=== PATIENT | male | born 1955 | race Caucasian/White ===

== ENCOUNTER 2020-11-15 22:36 | Outpatient (CLI) | payer MEDICARE | END 2020-11-15 22:37 | disposition critical access hospital (66) | LOC: EMS 22:36 | DX: R53.1 Weakness (principal); R51.9 Headache, unspecified; M54.2 Cervicalgia | CPT/HCPCS: A0425; A0429 ==

== ENCOUNTER 2020-11-15 23:13 | Inpatient (IN) | payer MEDICARE ==
[2020-11-16] MEDS ORDERED: SODIUM CHLORIDE 0.9% 1,000 ML IV STA (00:16)
[2020-11-16] MEDS ORDERED: KETOROLAC 15 MG/ML VIAL IVP STA (00:17)
--- NOTE | 2020-11-16 00:18 | ED Physician Documentation ---
PD HPI HEADACHE - Stated complaint Stated Complaint: LETHARGIC, LEFT NECK PAIN - Chief complaint Chief Complaint: General - History obtained from History obtained from: Patient, Family - History of Present Illness Timing - onset: How many days ago (4-5 days of general weakness but much worse today. [place] unable to stand/walk due to weakness in both legs. Mild arm weakness. Having some pain in back of neck. Mild headache. No focal numbness. Feeling of dyspnea today.) Timing - onset during: Light activity Timing - details: Gradual onset, Still present (worse today) Worst headache ever?: No: Worst headache ever? Location: Back Quality: Throbbing, Aching Associated symptoms: Stiff neck. No: Fever, Nausea, Vomiting, Weakness, Vision changes Worsened by: No: Light, Noise Contributing factors: Anticoagulated, Hypertension. No: Recent illness, Trauma Similar symptoms before: Diagnosis (has had the general weakness and also headache when had low potassium in the past.) Recently seen: Clinic (had first [employer] vaccine 1 1/2 weeks ago.), Not recently seen Review of Systems Constitutional: denies: Fever, Chills Nose: denies: Rhinorrhea / runny nose, Congestion Throat: denies: Sore throat Respiratory: denies: Cough GI: denies: Nausea, Vomiting, Diarrhea : denies: Dysuria, Frequency Skin: denies: Rash Musculoskeletal: reports: Neck pain. denies: Back pain Neurologic: reports: Generalized weakness, Headache. denies: Focal weakness, Numbness, Near syncope, Confused, Head injury, LOC PD PAST MEDICAL HISTORY - Past Medical History Cardiovascular: Hypertension, Atrial fibrillation Respiratory: None Neuro: None Endocrine/Autoimmune: None - Present Medications Home Medications: Ambulatory Orders Medication Instructions Recorded Confirmed Abiraterone Acetate [Zytiga] 500 mg PO 11/15/20 Apixaban [Eliquis] 11/15/20 Atorvastatin [Lipitor] 80 mg PO DAILY 11/15/20 11/15/20 Citalopram [CeleXA] 40 mg PO DAILY 11/15/20 11/15/20 Losartan [Cozaar] 100 mg PO DAILY 11/15/20 11/15/20 Omeprazole [PriLOSEC] 20 mg PO DAILY 11/15/20 11/15/20 Potassium Chloride [K-Dur] 20 meq PO ONCE 11/15/20 11/15/20 Terbinafine [LamISIL] 250 mg PO DAILY 11/15/20 11/15/20 bisoproloL fumarate [Bisoprolol 5 gm MC DAILY 11/15/20 11/15/20 Fumarate] predniSONE [Deltasone] 5 mg PO ONCE 11/15/20 11/15/20 - Allergies Allergies/Adverse Reactions: Allergies Allergy/AdvReac Type Severity Reaction Status Date / Time No Known Drug Allergies Allergy Verified 11/16/20 00:46 PD ED PE NORMAL - Vitals Vital signs reviewed: Yes - General General: Alert and oriented X 3, Well developed/nourished - HEENT HEENT: PERRL, EOMI, Pharynx benign - Neck Neck: Supple, no meningeal sign (but has some muscular tenderness right side neck. ), No bony TTP, No adenopathy - Cardiac Cardiac: No murmur. No: RRR (irregular but rate controlled. ) - Respiratory Respiratory: Clear bilaterally - Abdomen Abdomen: Soft, Non tender - Male Male : Deferred - Rectal Rectal: Deferred - Back Back: No CVA TTP - Derm Derm: Normal color, Warm and dry - Neuro Neuro: Alert and oriented X 3, No sensory deficit, Normal speech, Other (seems some weak of both legs. Arms good strength) Results - Vitals Vitals: Vital Signs - 24 hr 11/15/20 11/16/20 11/16/20 23:18 00:14 02:00 Temperature 36.1 C L Heart Rate 90 97 Respiratory 29 H 28 H 26 H Rate Blood Pressure 162/95 H 167/109 H 152/95 H O2 Saturation 96 93 94 Oxygen O2 Source Room air - EKG (time done) 00:21 Rate: Rate (enter#) (90) Rhythm: Atrial fibrillation, Other (PVCs intermittent) Ischemia: Normal ST segments, Non specific changes. No: ST elevation c/w ischemia, ST depression - Labs Labs: Laboratory Tests 11/15/20 11/15/20 11/15/20 23:49 23:49 23:49 WBC 9.2 RBC 3.67 L Hgb 10.9 L Hct 32.4 L MCV 88.3 MCH 29.7 MCHC 33.6 RDW 13.4 Plt Count 263 MPV 10.9 Neut # (Auto) 6.8 H Lymph # (Auto) 1.2 L [place] # (Auto) 1.1 H Eos # (Auto) 0.1 Baso # (Auto) 0.0 Absolute Nucleated RBC 0.00 Nucleated RBC % 0.0 ESR PT 21.5 H INR 2.0 H APTT 31.8 Sodium 136 Potassium 2.7 L Chloride 99 L Carbon Dioxide 26 Anion Gap 11.0 BUN 10 Creatinine 0.7 Estimated GFR (MDRD) 113 Glucose 98 Calcium 7.5 L Magnesium 1.0 L* Total Bilirubin 0.9 AST 20 ALT 15 Alkaline Phosphatase 54 Troponin I High Sens B-Natriuretic Peptide Total Protein 6.5 L Albumin 3.3 Globulin 3.2 Albumin/Globulin Ratio 1.0 Lipase 23 Nasal Adenovirus (PCR) Nasal B. parapertussis DNA (PCR) Nasal Coronavir 229E PCR Nasal Coronavir HKU1 PCR Nasal Coronavir NL63 PCR Nasal Coronavir OC43 PCR Nasal Enterovir/Rhinovir PCR Nasal Influenza B PCR Nasal Influenza A PCR Nasal Parainfluen 1 PCR Nasal Parainfluen 2 PCR Nasal Parainfluen 3 PCR Nasal Parainfluen 4 PCR Nasal RSV (PCR) Nasal B.pertussis DNA PCR Nasal C.pneumoniae (PCR) [place] Human Metapneumo PCR Nasal M.pneumoniae (PCR) Nasal SARS-CoV-2 (PCR) 11/15/20 11/15/20 11/15/20 23:49 23:49 23:49 WBC RBC Hgb Hct MCV MCH MCHC RDW Plt Count MPV Neut # (Auto) Lymph # (Auto) [place] # (Auto) Eos # (Auto) Baso # (Auto) Absolute Nucleated RBC Nucleated RBC % ESR 70 H PT INR APTT Sodium Potassium Chloride Carbon Dioxide Anion Gap BUN Creatinine Estimated GFR (MDRD) Glucose Calcium Magnesium Total Bilirubin AST ALT Alkaline Phosphatase Troponin I High Sens 60.0 H* B-Natriuretic Peptide 413 H Total Protein Albumin Globulin Albumin/Globulin Ratio Lipase Nasal Adenovirus (PCR) Nasal B. parapertussis DNA (PCR) Nasal Coronavir 229E PCR Nasal Coronavir HKU1 PCR Nasal Coronavir NL63 PCR Nasal Coronavir OC43 PCR Nasal Enterovir/Rhinovir PCR Nasal Influenza B PCR Nasal Influenza A PCR Nasal Parainfluen 1 PCR Nasal Parainfluen 2 PCR Nasal Parainfluen 3 PCR Nasal Parainfluen 4 PCR Nasal RSV (PCR) Nasal B.pertussis DNA PCR Nasal C.pneumoniae (PCR) Aldair Human Metapneumo PCR Nasal M.pneumoniae (PCR) Nasal SARS-CoV-2 (PCR) 11/16/20 11/16/20 11/16/20 01:45 01:54 01:54 WBC RBC Hgb Hct MCV MCH MCHC RDW Plt Count MPV Neut # (Auto) Lymph # (Auto) [place] # (Auto) Eos # (Auto) Baso # (Auto) Absolute Nucleated RBC Nucleated RBC % ESR PT INR APTT Sodium Potassium Chloride Carbon Dioxide Anion Gap BUN Creatinine Estimated GFR (MDRD) Glucose Calcium Magnesium Total Bilirubin AST ALT Alkaline Phosphatase Troponin I High Sens 65.2 H* B-Natriuretic Peptide 530 H Total Protein Albumin Globulin Albumin/Globulin Ratio Lipase Nasal Adenovirus (PCR) NOT DETECTED Nasal B. parapertussis DNA (PCR) NOT DETECTED Nasal Coronavir 229E PCR NOT DETECTED Nasal Coronavir HKU1 PCR NOT DETECTED Nasal Coronavir NL63 PCR NOT DETECTED Nasal Coronavir OC43 PCR NOT DETECTED Nasal Enterovir/Rhinovir PCR NOT DETECTED Nasal Influenza B PCR NOT DETECTED Nasal Influenza A PCR NOT DETECTED Nasal Parainfluen 1 PCR NOT DETECTED Nasal Parainfluen 2 PCR NOT DETECTED Nasal Parainfluen 3 PCR NOT DETECTED Nasal Parainfluen 4 PCR NOT DETECTED Nasal RSV (PCR) NOT DETECTED Nasal B.pertussis DNA PCR NOT DETECTED Nasal C.pneumoniae (PCR) NOT DETECTED Aldair Human Metapneumo PCR NOT DETECTED Nasal M.pneumoniae (PCR) NOT DETECTED Nasal SARS-CoV-2 (PCR) NOT DETECTED - Rads (name of study) head CT Radiology: Prelim report reviewed (no ICH nor acute process), See rad report chest xray Radiology: Prelim report reviewed (no CHF. ), See rad report PD MEDICAL DECISION MAKING - ED course Complexity details: reviewed results, re-evaluated patient, considered differential (consider possible side effects of COVID vaccine which he had 1 1/2 weeks ago, and then symptoms the past 4-5 days. Given anticoag and headache, would also get CT to ensure no ICH. Canc heck labs for lytes/etc. Eval for heart as well. ), d/w patient, d/w industrial methods consultant (hospitalist) Departure - Departure Disposition: ED Place in Observation Clinical Impression: General weakness, Hypokalemia, Hypomagnesemia, Elevated troponin Headache Qualifiers: Headache type: unspecified Headache chronicity pattern: acute headache Intractability: not intractable Qualified Code(s): R51.9 - Headache, unspecified Condition: Stable Discharge Date/Time: 11/16/20 02:56
[2020-11-16 00:34] LABS: BASOPHILS % (AUTO) 0.4 %; EOSINOPHILS # (AUTO) 0.1 10^3/uL (0.0-0.7); EOSINOPHILS % (AUTO) 0.8 %; HCT - HEMATOCRIT 32.4 % (42.0-52.0); HGB - HEMOGLOBIN 10.9 g/dL (14.0-18.0); LYMPHOCYTES # (AUTO) 1.2 10^3/uL (1.5-3.5); LYMPHOCYTES % (AUTO) 13.3 %; MEAN CORPUSCULAR HEMOGLOBIN 29.7 pg (27.0-31.0); MEAN CORPUSCULAR HGB CONC 33.6 g/dL (32.0-36.0); MEAN CORPUSCULAR VOLUME 88.3 fL (80.0-94.0); MEAN PLATELET VOLUME 10.9 fL (7.4-11.4); MONOCYTES # (AUTO) 1.1 10^3/uL (0.0-1.0); MONOCYTES % (AUTO) 11.4 %; NEUTROPHILS # (AUTO) 6.8 10^3/uL (1.5-6.6); NEUTROPHILS % (AUTO) 73.7 %; PLT - PLATELET COUNT 263 10^3/uL (130-450); RED BLOOD COUNT 3.67 10^6/uL (4.70-6.10); RED CELL DISTRIBUTION WIDTH 13.4 % (12.0-15.0); WHITE BLOOD COUNT 9.2 x10^3/uL (4.8-10.8)
[2020-11-16 00:41] LABS: PT - PROTHROMBIN TIME 21.5 secs (9.9-12.6)
[2020-11-16 00:49] LABS: PARTIAL THROMBOPLASTIN TIME 31.8 secs (24.9-33.3)
[2020-11-16 00:54] LABS: ALBUMIN 3.3 g/dL (3.2-5.5); BILIRUBIN,TOTAL 0.9 mg/dL (0.2-1.0); CALCIUM 7.5 mg/dL (8.5-10.3); CREATININE 0.7 mg/dL (0.6-1.2); POTASSIUM 2.7 mmol/L (3.5-5.0); TOTAL PROTEIN 6.5 g/dL (6.7-8.2)
[2020-11-16] MEDS ORDERED: POTASSIUM CHLOR 10 MEQ/100 ML 10 MEQ/100 ML BAG IV STA (01:05)
[2020-11-16] MEDS ORDERED: MAGNESIUM SULFATE 2 GRAM 2 GM/50 ML BAG IV ONE ×2 (01:05→07:04)
[2020-11-16] MEDS ORDERED: MAGNESIUM OXIDE 400 MG TABLET PO STA (01:24)
[2020-11-16] MEDS ORDERED: POTASSIUM CHLORIDE 20 MEQ TABLET PO STA (01:24)
--- NOTE | 2020-11-16 01:57 | HISTORY & PHYSICAL EXAMINATION ---
Chief Complaint - Chief Complaint Chief Complaint: Neck pain. History of Present Illness - Admitted From Admitted From:: Home - History Obtained From Records Reviewed: Yes History obtained from: Patient, Spouse, ER Physician. - History of Present Illness HPI Comment/Other: This is a 65-year-old male with a past medical history significant for atrial relation on Eliquis, hypertension, metastatic prostate cancer on Zytiga and prednisone who presents today complaining of neck pain. He states his symptoms have been going on for the past week or so. He believes he has had occasional tingling in his right arm over the past few weeks as well. His neck pain is so significant that he does not want to move his neck whatsoever. He does report tenderness to his cervical spine and the adjacent muscles. He has tried ibuprofen with mild relief. He has not tried any muscle relaxants. He also states that he feels weak overall and has had difficulty ambulating over the past couple weeks. His notes that his gait has been shuffling. He does complain of lower extremity weakness but denies any muscle pains or aches there. He does complain of muscle cramping in his neck. He states this feels similar to when he had low potassium about a year ago when he was hospitalized at [facility] in [place] for over a week. He reports no numbness or tingling in his lower extremities. No focal deficits. Denies any urinary or bowel symptoms. He denies any lumbar spine pain. He states his prostate cancer has metastasized to his spine, lung, and ribs. He is [facility] by [facility]. He reports no chest pain or dyspnea. His feels that he is not sharp as he usually is and delivered slow to answer some questions. He reports no dysuria, urgency, hematuria. In the emergency department, he was found to be afebrile. He was hypertensive with systolic in the 160s. He was tachypneic with respiratory in the mid 20s. He was saturating well on room air. Labs were significant for potassium of 2.7 and magnesium of 1.0. His ESR was 70. Initial troponin was 60. His EKG revealed atrial fibrillation without evidence of ischemia. His QTC was prolonged at 496. Given the above findings, medicine was consulted for admission. I did discuss goals of care with the patient and he would like to be a full code. 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 Living arrangement: At home Living Situation: With spouse/s.o. Social History Notes: He lives at home with his , Avelina. 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 He continues smoke a half a pack a day and has been smoking for almost his whole life. He drinks 2 glasses of wine a day and has been doing so as well for most of his life. - POLST Patient has POLST: No Meds/Allgy - Home Medications Home Medications: Ambulatory Orders Medication Instructions Recorded Confirmed Abiraterone Acetate [Zytiga] 500 mg PO 11/15/20 Apixaban [Eliquis] 11/15/20 Atorvastatin [Lipitor] 80 mg PO DAILY 11/15/20 11/15/20 Citalopram [CeleXA] 40 mg PO DAILY 11/15/20 11/15/20 Losartan [Cozaar] 100 mg PO DAILY 11/15/20 11/15/20 Omeprazole [PriLOSEC] 20 mg PO DAILY 11/15/20 11/15/20 Potassium Chloride [K-Dur] 20 meq PO ONCE 11/15/20 11/15/20 Terbinafine [LamISIL] 250 mg PO DAILY 11/15/20 11/15/20 bisoproloL fumarate [Bisoprolol 5 gm MC DAILY 11/15/20 11/15/20 Fumarate] predniSONE [Deltasone] 5 mg PO ONCE 11/15/20 11/15/20 - Allergies Allergies/Adverse Reactions: Allergies Allergy/AdvReac Type Severity Reaction Status Date / Time No Known Drug Allergies Allergy Verified 11/16/20 00:46 Review of Systems - Constitutional Constitutional: reports: Fatigue. denies: Fever, Chills - Eyes Eyes: denies: Blurred vision, Vision loss - Cardiovascular Cariovascular: denies: Chest pain, Edema, Lightheadedness, Exertional dyspnea, Decr. exercise tolerance - Respiratory Respiratory: denies: Cough, SOB at rest, SOB with exertion - Gastrointestinal Gastrointestinal: denies: Abdominal pain, Diarrhea, Change in bowel habits, Nausea, Vomiting - Genitourinary Genitourinary: denies: Dysuria, Frequency, Urgency, Hematuria - Musculoskeletal Musculoskeletal: reports: Muscle pain, Back pain, Muscle aches, Stiffness, Limited range of motion - Integumentary Integumentary: denies: Rash - Neurological Neurological: reports: General weakness, Abnormal gait. denies: Focal weakness, Dizziness, Numbness - Hematologic/Lymphatic Hematologic/Lymphatic: denies: Bleeding tendencies - All Other Systems All Other Systems: reports: Reviewed and negative Prior Level of Functionality: He is normally independent with his ADLs. Exam - Vital Signs Reviewed Vital Signs: Yes Vital Signs: Vital Signs x48h Temp Pulse Resp BP Pulse Ox 11/16/20 00:14 90 28 H 167/109 H 93 11/15/20 23:18 36.1 C L 29 H 162/95 H 96 - Physical Exam General Appearance: positive: Alert, Mild distress Eyes Bilateral: positive: Normal inspection, PERRL, Conjunctivae nml ENT: positive: ENT inspection nml Neck: positive: Other (He has cervical spine tenderness as well as paraspinal muscle tenderness. Range of motion is limited secondary to pain.) Respiratory: positive: No respiratory distress, Other (He is tachypneic but not in distress.). negative: Wheezes, Rales Cardiovascular: positive: Irregularly irregular. negative: Tachycardia, Bradycardia, Systolic murmur Abdomen: positive: Non-tender, No distention. negative: Tenderness, Guarding, Rebound Back: positive: Other (He does have cervical spine tenderness as mentioned above. No thoracic or lumbar spine tenderness.) Skin: positive: Warm, Dry Extremities: positive: No pedal edema Neurologic/Psychiatric: positive: Motor nml, Sensation nml, Other (Sensation is intact in all 4 extremities. 5 out of 5 motor strength in all 4 extremities. He has about +1 to +2 reflexes at the patella bilaterally.). negative: Disoriented to person, Slurred/abnml speech Conclusion/Plan - Problem List (1) General weakness Conclusion/Plan: This appears to be secondary to his ultralight derangements. This is likely causing him to have the weakness and difficulty ambulating. CT the head was unremarkable. He has no obvious focal deficits on exam at this time. We will replace electrolytes and will consider PT consult if no improvement. (2) Hypokalemia Conclusion/Plan: This is likely contributing to his weakness. His potassium is decreased at 2.7. He is on losartan and potassium supplementation at home. This may potentially be caused by his Zytiga which can cause mineralocorticoid excess with hypokalemia and hyper tension although he is also taking prednisone with this. We will replace his magnesium aggressively given this is quite depleted at 1.0 and then replace his potassium. Will recheck labs in the morning. We did discuss checking check aldosterone and renin but given this is a send out lab, we will have him follow up with his primary care physician for consideration of these labs since it would not roving changer at this time and there is a likelihood that this is due to the zytiga. (3) Hypomagnesemia Conclusion/Plan: He has significant hypomagnesemia with a magnesium of 1.0. The etiology is not clear but may be related to his alcohol consumption. This is likely co ntributing to his hyperkalemia as well. We will replace this aggressively and recheck labs in the morning. (4) Neck pain Conclusion/Plan: His neck pain may be due to the hypokalemia but I am also concerned given his history of metastatic prostate cancer and occasional tingling/sciatica-like pain down his right arm that there could be metastatic disease. We will order a CT of the neck for further evaluation. We will start him on Robaxin as needed and continue with ibuprofen and Tylenol as needed for pain. Low suspicion for meningitis at this time given lack of fever, photophobia but will consider a lumbar puncture if symptoms persist. (5) Elevated troponin Conclusion/Plan: Suspect this is likely demand ischemia. His troponin is elevated in the 60s but he has no chest pain his EKG does not suggest ischemia. We will continue to trend and monitor on telemetry. (6) Prostate cancer metastatic to bone Conclusion/Plan: He has known prostate cancer metastasis to the spine, lungs, ribs. He is on Zytiga and prednisone and is followed by [facility]. We will obtain further imaging of the cervical spine as mentioned above given his neck pain and concern for metastatic disease. There is also concern that the Zytiga may be contributing to the hypokalemia and hypertension. The continuation of Zytiga will need to be discussed with his oncologist given the hypokalemia. (7) Hypertension Conclusion/Plan: He is hypertensive with systolic in the 160s and given the hypokalemia, there is concern for hyperaldosteronism. We will check plasma aldosterone concentration plasma renin activity as mentioned above. We will continue his home antihypertensives. - Lab Results Lab results reviewed: Yes Fish Bones: 11/16/20 04:55 11/16/20 04:55 - Diagnostic Imaging Results Diagnostic Imaging Results: positive: Final report reviewed - EKG Results EKG Interpreted Independently: Yes EKG Comparison: No prior EKG EKG Findings: EKG reveals atrial fibrillation without evidence of ischemia. PVCs noted. QTC is prolonged at 496. Core Measures - Anticipated LOS I expect patient to be DC'd or transferred within 96 hours.: Yes - Issues Hospital Issues and Management Plan: 65-year-old male with a history of atrial fibrillation and metastatic prostate cancer presents with neck pain and generalized weakness found to have hypokalemia and hypomagnesemia. We will admit for aggressive electrolyte replacement. Will also obtain a CT of the neck for further evaluation given his history of metastatic disease. - DVT/VTE - Prophylaxis VTE/DVT Device ordered at admit?: Yes VTE/DVT Prophylaxis med ordered at admit?: No
[2020-11-16] MEDS ORDERED: NS W/20 MEQ KCL 1,000 ML IV SCH (03:00)
[2020-11-16 03:04] LABS: B. PARAPERTUSSIS- RESP PCR PAN NOT DETECTED; B. PERTUSSIS- RESP PCR PANEL NOT DETECTED; C. PNEUMONIAE- RESP PCR PANEL NOT DETECTED; CORONAVIRUS 229E-RESP PCR NOT DETECTED; CORONAVIRUS HKU1-RESP PCR NOT DETECTED; CORONAVIRUS NL63-RESP PCR NOT DETECTED; CORONAVIRUS OC43-RESP PCR NOT DETECTED; HUMAN METAPNEUMOVIRUS NOT DETECTED; INFLUENZA A- RESP PCR PANEL NOT DETECTED; INFLUENZA B - RESP PCR PANEL NOT DETECTED; M. PNEUMONIAE- RESP PCR PANEL NOT DETECTED; PARAINFLUENZA VIRUS 1 NOT DETECTED; PARAINFLUENZA VIRUS 2 NOT DETECTED; PARAINFLUENZA VIRUS 3 NOT DETECTED; PARAINFLUENZA VIRUS 4 NOT DETECTED; RHINOVIRUS/ENTEROVIRUS NOT DETECTED; RSV- RESP PCR PANEL NOT DETECTED; SARS-CoV-2 -RESP PCR PANEL NOT DETECTED
[2020-11-16] MEDS: POTASSIUM CHLOR 10 MEQ/100 ML 10 MEQ/100 ML BAG IV SCH ×6 (03:48→11:49)
[2020-11-16 05:08] LABS: BASOPHILS % (AUTO) 0.3 %; EOSINOPHILS # (AUTO) 0.1 10^3/uL (0.0-0.7); EOSINOPHILS % (AUTO) 0.6 %; HCT - HEMATOCRIT 31.6 % (42.0-52.0); HGB - HEMOGLOBIN 10.7 g/dL (14.0-18.0); MEAN CORPUSCULAR HEMOGLOBIN 29.8 pg (27.0-31.0); MEAN CORPUSCULAR HGB CONC 33.9 g/dL (32.0-36.0); MEAN PLATELET VOLUME 10.3 fL (7.4-11.4); MONOCYTES # (AUTO) 0.9 10^3/uL (0.0-1.0); MONOCYTES % (AUTO) 10.5 %; NEUTROPHILS # (AUTO) 6.6 10^3/uL (1.5-6.6); NEUTROPHILS % (AUTO) 76.1 %; PLT - PLATELET COUNT 228 10^3/uL (130-450); RED BLOOD COUNT 3.59 10^6/uL (4.70-6.10); RED CELL DISTRIBUTION WIDTH 13.3 % (12.0-15.0); WHITE BLOOD COUNT 8.7 x10^3/uL (4.8-10.8)
[2020-11-16 05:19] LABS: CALCIUM 7.3 mg/dL (8.5-10.3); CREATININE 0.7 mg/dL (0.6-1.2); MAGNESIUM 1.5 mg/dL (1.7-2.8); PHOSPHORUS 1.5 mg/dL (2.5-4.6); POTASSIUM 2.9 mmol/L (3.5-5.0)
[2020-11-16] MEDS: IBUPROFEN 400 MG TABLET PO PRN ×2 (06:08→20:42)
--- NOTE | 2020-11-16 07:28 | CT Report ---
PROCEDURE: HEAD WO INDICATIONS: headache, on Eliquis TECHNIQUE: Noncontrast 4.5 mm thick angled axial sections acquired from the foramen magnum to the vertex. For r adiation dose reduction, the following was used: automated exposure control, adjustment of mA and/or kV according to patient size. COMPARISON: None. FINDINGS: Image quality: Excellent. CSF spaces: Basal cisterns are patent. No extra-axial fluid collections. Ventricles are normal in size and shape. Brain: No midline shift. No intracranial masses or hemorrhage. [place]-white matter interface is norm al. Age-related volume loss. Intracranial carotid calcifications. Skull and face: Calvarium and visualized facial bones are intact, without suspicious lesions. Sinuses: Left maxillary sinus mucosal cyst. Patchy mild anterior ethmoid disease. IMPRESSION: 1. Age-related volume loss 2. No evidence acute stroke, hemorrhage, or mass. 3. Chronic sinus disease. A preliminary report with the above findings was provided at the time of the study by [facility]. Reviewed by: Reinaldo Reyes MD on 11/16/2020 6:26 AM NASRIN Approved by: Reinaldo Reyes MD on 11/16/2020 6:26 AM NASRIN Station ID: [id number]
--- NOTE | 2020-11-16 07:51 | CT Report ---
PROCEDURE: CERVICAL SPINE WO INDICATIONS: Neck pain. Numbness right arm. Metastatic cancer. TECHNIQUE: Noncontrast 3 mm thick sections acquired from the skull base to the T4 level. Sagittal and coronal r eformats were then constructed. For radiation dose reduction, the following was used: automated exp osure control, adjustment of mA and/or kV according to patient size. COMPARISON: None. FINDINGS: Image quality: Excellent. Bones: No fractures or dislocations. Visualized superior ribs are intact. Severe cervical spondyli tic change. Multilevel uncovertebral joint osteophytes and facet arthropathy result in multilevel bon y foraminal narrowing. Soft tissues: Prevertebral soft tissues are normal in thickness. No paravertebral hematomas. No ap ical pneumothoraces. There is fullness in the right base of tongue region and right lateral wall of the oropharynx that is seen on image 32/3. There is also shotty cervical adenopathy. IMPRESSION: 1. No evidence acute cervical fracture or dislocation. 2. Cervical spondylitic change. 3. Fullness of the right oropharynx involving base of tongue and lateral wall of the oropharynx is no anitra. Suggest ENT referral for direct visualization. A preliminary report with the above findings was provided at the time of the study by [facility]. Above discussed with Dr. Ruiz, the hospitalist caring for the patient, at the time of dictation on 11/16/2020 at 0647 hours [place] daylight time. Reviewed by: Reinaldo Reyes MD on 11/16/2020 6:50 AM NASRIN Approved by: Reinaldo Reyes MD on 11/16/2020 6:50 AM NASRIN Station ID: [id number]
[2020-11-16] MEDS ORDERED: POTASSIUM CHLORIDE 20 MEQ TABLET PO SCH (08:00)
[2020-11-16] MEDS: POTASSIUM CHLORIDE 20 MEQ TABLET PO SCH ×2 (08:01→17:23)
[2020-11-16] MEDS: MAGNESIUM OXIDE 400 MG TABLET PO SCH (08:01)
[2020-11-16] MEDS: ACETAMINOPHEN 325 MG TABLET PO PRN ×2 (08:02→20:41)
[2020-11-16] MEDS: methocarbamoL 500 MG TABLET PO PRN ×2 (08:02→16:00)
[2020-11-16] MEDS: LOSARTAN 50 MG TABLET PO SCH (08:02)
[2020-11-16] MEDS: CITALOPRAM HYDROBROMIDE 20 MG TABLET PO SCH (08:02)
[2020-11-16] MEDS: SODIUM CHLORIDE FLUSH 0.9% 10 ML SYRINGE IVP SCH ×2 (08:03→16:00)
[2020-11-16] MEDS: METOPROLOL TARTRATE 50 MG TABLET PO SCH ×2 (08:24→20:43)
[2020-11-16] MEDS: predniSONE 5 MG TABLET PO SCH (08:24)
--- NOTE | 2020-11-16 08:43 | XRAY Report ---
PROCEDURE: Chest 1 View X-Ray INDICATIONS: chest pain TECHNIQUE: One view of the chest was acquired. COMPARISON: None FINDINGS: Surgical changes and devices: None. Lungs and pleura: Interstitial pulmonary edema. No pleural fluid noted. Mediastinum: Mediastinal contours appear normal. Cardiomegaly. Bones and chest wall: No suspicious bony lesions. Overlying soft tissues appear unremarkable. IMPRESSION: Congestive heart failure exacerbation. A preliminary report with the above findings was provided at the time of the study by [facility]. Reviewed by: Reinaldo Reyes MD on 11/16/2020 7:41 AM NASRIN Approved by: Reinaldo Reyes MD on 11/16/2020 7:41 AM NASRIN Station ID: [id number]
[2020-11-16] MEDS ORDERED: BISOPROLOL FUMARATE MC SCH (09:00)
--- NOTE | 2020-11-16 11:06 | PHARMACY PROGRESS NOTE ---
- Best Possible Medication History Admit Date and Time: 11/16/20 0226 Processed by: Nursing Medication History completed: Yes Patient Interview: Completed Secondary Source(s): Pharmacy records, Insurance records As the person ultimately responsible for medication therapy, providers are able to order a medication from an existing home medication list in [facility] via the "Reconcile Routine" prior to Confirmation of that medication by call center support representative. Such practice is discouraged except when the physician, in their clinical judgment, deems that a medical need exists for a medication without regard to previous use.
[2020-11-16 13:37] LABS: CALCIUM 7.2 mg/dL (8.5-10.3); CREATININE 0.7 mg/dL (0.6-1.2); POTASSIUM 3.4 mmol/L (3.5-5.0)
[2020-11-16] MEDS: SODIUM CHLORIDE FLUSH 0.9% 10 ML SYRINGE IVP PRN ×2 (16:00→18:14)
--- NOTE | 2020-11-16 18:05 | PROVIDER PROGRESS NOTE ---
Progress Note Patient admitted for hypokalemia and fatigue. Electrolytes have been replaced and close to normal, patient requested discharge home. I arrived at the bedside to evaluate the patient and noticed that he appeared to be dyspneic, and had mild tachypnea. He was not on oxygen and was saturating well on room air, but asked him about his breathing. He tells me he has been breathing worse for the last few weeks and has been feeling tired. I asked him if this is new for him and he tells me yes. He describes orthopnea and difficulty sleeping at night. 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 I informed him that if I keep him in the hospital and try some diuretics and get an echocardiogram I may be able to discharge him tomorrow with a more comprehensive treatment plan as I suspect he may have undiagnosed CHF, possibly related to uncontrolled atrial fibrillation. Patient was hesitant, primarily because of his concern of the cost of hospitalization but he consulted with his and ultimately decided he like to stay 1 more night. I will start him on Lasix 20 mg IV daily starting now, if he tolerates this well and renal function does not worsen, blood pressure maintains, we may be able to titrate him up tomorrow and will follow up results of echocardiogram and manage accordingly.
[2020-11-16] MEDS: FUROSEMIDE 20 MG/2 ML VIAL IVP SCH (18:14)
[2020-11-16] MEDS: APIXABAN 5 MG TABLET PO SCH (20:43)
[2020-11-16] MEDS: FAMOTIDINE 20 MG TABLET PO SCH (20:43)
[2020-11-16] MEDS ORDERED: ATORVASTATIN 40 MG TABLET PO SCH (21:00)
[2020-11-17] MEDS: SODIUM CHLORIDE FLUSH 0.9% 10 ML SYRINGE IVP SCH ×2 (00:24→07:48)
[2020-11-17 05:17] LABS: BASOPHILS % (AUTO) 0.5 %; EOSINOPHILS # (AUTO) 0.1 10^3/uL (0.0-0.7); EOSINOPHILS % (AUTO) 0.9 %; HCT - HEMATOCRIT 30.5 % (42.0-52.0); HGB - HEMOGLOBIN 10.1 g/dL (14.0-18.0); LYMPHOCYTES # (AUTO) 1.1 10^3/uL (1.5-3.5); LYMPHOCYTES % (AUTO) 12.9 %; MEAN CORPUSCULAR HEMOGLOBIN 29.1 pg (27.0-31.0); MEAN CORPUSCULAR HGB CONC 33.1 g/dL (32.0-36.0); MEAN CORPUSCULAR VOLUME 87.9 fL (80.0-94.0); MEAN PLATELET VOLUME 10.5 fL (7.4-11.4); MONOCYTES # (AUTO) 0.7 10^3/uL (0.0-1.0); MONOCYTES % (AUTO) 8.3 %; NEUTROPHILS # (AUTO) 6.3 10^3/uL (1.5-6.6); NEUTROPHILS % (AUTO) 76.8 %; PLT - PLATELET COUNT 239 10^3/uL (130-450); RED BLOOD COUNT 3.47 10^6/uL (4.70-6.10); RED CELL DISTRIBUTION WIDTH 13.3 % (12.0-15.0); WHITE BLOOD COUNT 8.2 x10^3/uL (4.8-10.8)
[2020-11-17 05:34] LABS: CALCIUM 7.1 mg/dL (8.5-10.3); CREATININE 0.5 mg/dL (0.6-1.2); MAGNESIUM 1.7 mg/dL (1.7-2.8); PHOSPHORUS 1.5 mg/dL (2.5-4.6); POTASSIUM 2.9 mmol/L (3.5-5.0)
[2020-11-17] MEDS: IBUPROFEN 400 MG TABLET PO PRN (05:43)
[2020-11-17] MEDS ORDERED: POTASSIUM CHLORIDE 20 MEQ TABLET PO STA (07:18)
[2020-11-17] MEDS: POTASSIUM CHLORIDE 20 MEQ TABLET PO SCH (07:44)
[2020-11-17] MEDS: METOPROLOL TARTRATE 50 MG TABLET PO SCH (07:45)
[2020-11-17] MEDS: LOSARTAN 50 MG TABLET PO SCH (07:45)
[2020-11-17] MEDS: NEUTRA-PHOS 250 MG TABLET PO SCH ×2 (07:47→12:04)
[2020-11-17] MEDS: FAMOTIDINE 20 MG TABLET PO SCH (07:47)
[2020-11-17] MEDS: MAGNESIUM OXIDE 400 MG TABLET PO SCH (07:47)
[2020-11-17] MEDS: CITALOPRAM HYDROBROMIDE 20 MG TABLET PO SCH (07:47)
[2020-11-17] MEDS: predniSONE 5 MG TABLET PO SCH (07:48)
[2020-11-17] MEDS: APIXABAN 5 MG TABLET PO SCH (07:48)
[2020-11-17] MEDS: FUROSEMIDE 20 MG/2 ML VIAL IVP SCH (07:48)
[2020-11-17] MEDS: SODIUM CHLORIDE FLUSH 0.9% 10 ML SYRINGE IVP PRN (07:52)
[2020-11-17] MEDS ORDERED: CALCIUM GLUCONATE 1,000 MG in SODIUM CHLORIDE 0.9% 50 ML IV ONE (08:00)
[2020-11-17 09:59] LABS: BILIRUBIN,URINE NEGATIVE (NEGATIVE); GLUCOSE, URINE (UA) NEGATIVE (NEGATIVE); KETONES,URINE (UA) NEGATIVE (NEGATIVE); LEUKOCYTE ESTERASE, URINE NEGATIVE (NEGATIVE); NITRITE,URINE NEGATIVE (NEGATIVE); OCCULT BLOOD,URINE NEGATIVE (NEGATIVE); PROTEIN,URINE NEGATIVE (NEGATIVE); UROBILINOGEN,URINE 0.2 (NORMAL) E.U./dL (NORMAL)
[2020-11-17 10:04] LABS: AMORPHOUS SEDIMENT,UR Few /LPF; BACTERIA,URINE Rare /HPF (None Seen); CLARITY,URINE CLEAR (CLEAR); MUCUS,URINE Few Strands; RBC,URINE 0-5 /HPF (0-5); SQUAMOUS EPITHELIAL CELL,UR RARE Squamous (<= Few); WBC,URINE 0-3 /HPF (0-3)
--- NOTE | 2020-11-17 12:56 | Discharge Plan ---
Discharge Plan Problem Reviewed?: Yes Disposition: Home, Self Care Condition: Stable Prescriptions: methocarbamoL [Robaxin] 500 mg PO Q6HR PRN #20 tablet PRN Reason: Spasms bisoproloL fumarate [Bisoprolol Fumarate] 10 mg PO DAILY #30 tab Furosemide [Lasix] 20 mg PO DAILY #30 tablet Diet: Low Sodium Activity Restrictions: Activity as Tolerated Shower Restrictions: No Driving Restrictions: No Instruction Topics: Methocarbamol tablets, Heart Failure, AFL/Afib Health Concerns: You were admitted to the hospital when you came to the emergency room complaining of weakness. You are found to have a low potassium level along with some other electrolyte abnormalities. You were kept in the hospital overnight to manage the potassium, magnesium, and phosphorus levels and to reassess your weakness the following day. Incidentally, you were noticed to be somewhat short of breath and your chest x-ray was suggestive of a buildup of fluid in the lungs. Both of these things suggested the possibility of congestive heart failure so an echocardiogram was ordered. This is an ultrasound of your heart and it is used to evaluate people for heart failure along with other abnormalities. The results of this test, the echocardiogram, suggest a mild decrease in your heart's ability to contract and function as a pump. This is demonstrated by a number called the ejection fraction which is a little bit low as measured in your heart, which was 45 to 50%. Normally would like to see this number at 60 to 65%. This might explain why your having a difficult time breathing and why it gets worse when you lay flat at night. I have given you prescriptions for a few medications that may help with this including a water pill called furosemide otherwise known as Lasix. Please take this pill every day along with a potassium pill that I have given you. When you take Lasix, you will normally have a lower potassium level so the potassium supplement will help correct this. In addition, your blood pressure and heart rate were periodically elevated so I am increasing the dose of your up Bisoprolol from 5 mg to 10 mg. 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 Your naval police coxswain may or may not decide to continue on your medications I have prescribed for you, so please follow his or her instructions when you see them. If you develop any chest pain or shortness of breath or any other life- threatening symptoms, please call 911 or return to the ER promptly. No Smoking: If you smoke, Please STOP! Call for help.
[2020-11-17 13:04] VITALS: BP 146/91
--- NOTE | 2020-11-17 16:52 | DISCHARGE SUMMARY ---
"Discharge Summary Admit Date: 11/16/20 Discharge Date: 11/17/20 Discharging Provider: Kulwant Ruiz MD Condition at Discharge: Stable Discharge Disposition: 01 Home, Self Care - DIAGNOSES Admission Diagnoses: Hypokalemia Hypomagnesemia Neck pain Elevated troponin Prostate cancer metastatic to bone Hypertension - HPI History of Present Illness: This is a 65-year-old male with a past medical history significant for atrial relation on Eliquis, hypertension, metastatic prostate cancer on Zytiga and prednisone who presents today complaining of neck pain. He states his symptoms have been going on for the past week or so. He believes he has had occasional tingling in his right arm over the past few weeks as well. His neck pain is so significant that he does not want to move his neck whatsoever. He does report tenderness to his cervical spine and the adjacent muscles. He has tried ibuprofen with mild relief. He has not tried any muscle relaxants. He also states that he feels weak overall and has had difficulty ambulating over the past couple weeks. His notes that his gait has been shuffling. He does complain of lower extremity weakness but denies any muscle pains or aches there. He does complain of muscle cramping in his neck. He states this feels similar to when he had low potassium about a year ago when he was hospitalized at [facility] for over a week. He reports no numbness or tingling in his lower extremities. No focal deficits. Denies any urinary or bowel symptoms. He denies any lumbar spine pain. He states his prostate cancer has metastasized to his spine, lung, and ribs. He is followed by the [facility]. He rep orts no chest pain or dyspnea. His feels that he is not sharp as he usually is and delivered slow to answer some questions. He reports no dysuria, urgency, hematuria. In the emergency department, he was found to be afebrile. He was hypertensive with systolic in the 160s. He was tachypneic with respiratory in the mid 20s. He was saturating well on room air. Labs were significant for potassium of 2.7 and magnesium of 1.0. His ESR was 70. Initial troponin was 60. His EKG revealed atrial fibrillation without evidence of ischemia. His QTC was prolonged at 496. Given the above findings, medicine was consulted for admission. I did discuss goals of care with the patient and he would like to be a full code. - CONSULTS | PROCEDURES Consultations: None Procedures: None - HOSPITAL COURSE Hospital Course: Patient admitted for hypokalemia and fatigue. Electrolytes have been replaced and close to normal, patient requested discharge home. I arrived at the bedside to evaluate the patient and noticed that he appeared to be dyspneic, and had mild tachypnea. He was not on oxygen and was saturating well on room air, but asked him about his breathing. He tells me he has been breathing worse for the last few weeks and has been feeling tired. I asked him if this is new for him and he tells me yes. He describes orthopnea and difficulty sleeping at night. 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 I informed him that if I keep him in the hospital and try some diuretics and get an echocardiogram I may be able to discharge him tomorrow with a more comprehensive treatment plan as I suspect he may have undiagnosed CHF, possibly related to uncontrolled atrial fibrillation. Patient was hesitant, primarily because of his concern of the cost of hospitalization but he consulted with his and ultimately decided he like to stay 1 more night. Patient was given aDose of 20 mg IV Lasix evening before discharge, then was given a second dose in the morning on the day of discharge. On morning rounds he felt much better had no evidence of dyspnea and was saturating very well on room air. He was again requesting to go home. Echocardiogram was performed and showed evidence of probable diastolic heart failure with an EF of 40 to 45%. He was started on Lasix20 mg p.o. daily along with oral potassium and was discharged home in stable medical condition with instructions to follow-up with cardiology. - ALLERGIES Allergies/Adverse Reactions: Allergies Allergy/AdvReac Type Severity Reaction Status Date / Time No Known Drug Allergies Allergy Verified 11/16/20 00:46 - MEDICATIONS Home Medications: Ambulatory Orders Medication Instructions Recorded Confirmed Abiraterone Acetate [Zytiga] 1,000 mg PO DAILY 11/15/20 11/16/20 Apixaban [Eliquis] 5 mg PO BID 11/15/20 11/16/20 Atorvastatin [Lipitor] 80 mg PO DAILY 11/15/20 11/15/20 Citalopram [CeleXA] 40 mg PO DAILY 11/15/20 11/15/20 Losartan [Cozaar] 100 mg PO DAILY 11/15/20 11/15/20 Omeprazole [PriLOSEC] 20 mg PO DAILY 11/15/20 11/15/20 Potassium Chloride [K-Dur] 20 meq PO DAILY 11/15/20 11/16/20 Terbinafine [Lamisil] 250 mg PO DAILY 11/15/20 11/15/20 predniSONE [Deltasone] 5 mg PO DAILY 11/15/20 11/16/20 Furosemide [Lasix] 20 mg PO DAILY #30 tablet 11/17/20 Magnesium Oxide [Mag Ox] 400 mg PO DAILYWM tablet 11/17/20 bisoproloL fumarate [Bisoprolol 10 mg PO DAILY #30 tab 11/17/20 Fumarate] methocarbamoL [Robaxin] 500 mg PO Q6HR PRN #20 tablet 11/17/20 - PHYSICAL EXAM AT DISCHARGE General Appearance: positive: No acute distress Eyes Bilateral: positive: Normal inspection ENT: positive: ENT inspection nml Neck: positive: Nml inspection Respiratory: positive: Chest non-tender Cardiovascular: positive: No murmur, No gallop, Irregularly irregular Peripheral Pulses: positive: 2+ Abdomen: positive: Non-tender, No organomegaly, Nml bowel sounds, No distention Rectal: positive: Non-tender Skin: positive: Color nml Extremities: positive: Non-tender, Full ROM Neurologic/Psychiatric: positive: Oriented x3, CN's nml (2-12) - LABS Result Diagrams: 11/17/20 04:55 11/17/20 04:55 - DIAGNOSTIC IMAGING Diagnostic Imaging Results: Prelim report reviewed - FOLLOW UP Follow Up: PCP Cardiology - TIME SPENT Time Spent in Discharge (Minutes): 39"
== END 2020-11-17 14:30 | disposition home or self-care (01) | DRG 640 ==
LOC: ED 23:13 → MS2 11-16 02:26 → OBSVTOIN 11-16 18:05
PROVIDERS: ADMIT Internal Medicine; ATTEND Family Medicine Sports Medicine
DX: E87.6 Hypokalemia (principal); I50.33 Acute on chronic diastolic (congestive) heart failure; C78.00 Secondary malignant neoplasm of unspecified lung; R77.8 Other specified abnormalities of plasma proteins; R06.00 Dyspnea, unspecified; C79.51 Secondary malignant neoplasm of bone; I11.0 Hypertensive heart disease with heart failure; I48.91 Unspecified atrial fibrillation; E83.42 Hypomagnesemia; C61 Malignant neoplasm of prostate; M54.2 Cervicalgia; Z20.822 Contact with and (suspected) exposure to COVID-19; E78.00 Pure hypercholesterolemia, unspecified; F17.210 Nicotine dependence, cigarettes, uncomplicated; Z79.899 Other long term (current) drug therapy; Z79.01 Long term (current) use of anticoagulants; Z79.52 Long term (current) use of systemic steroids; Z72.89 Other problems related to lifestyle; R51.9 Headache, unspecified
CPT/HCPCS: 36415; 70450; 71045; 72125; 80048; 80053; 81001; 82140; 82550; 83690; 83735; 83880; 84100; 84443; 84484; 85025; 85610; 85651; 85730; 87631; 93005; 93306; 96365; 96366; 96368; 96375; 96376; 99284; 99285; A9270; G0378; J7040; J7512; J8499; 0202U; 82088; 84244; 87086

== ENCOUNTER 2021-03-13 16:07 | Outpatient (CLI) | payer MEDICARE, OTHER | END 2021-03-13 16:08 | disposition EMS.NT | LOC: EMS 16:07 | DX: S01.111A Laceration without foreign body of right eyelid and periocular area, initial encounter (principal); S50.811A Abrasion of right forearm, initial encounter; W17.89XA Other fall from one level to another, initial encounter; Y93.89 Activity, other specified; Y92.009 Unspecified place in unspecified non-institutional (private) residence as the place of occurrence of the external cause; M54.6 Pain in thoracic spine ==

== ENCOUNTER 2021-03-13 18:17 | Emergency (ER) | payer MEDICARE, OTHER ==
--- NOTE | 2021-03-13 18:42 | ED Physician Documentation ---
PD HPI MAJOR TRAUMA - Stated complaint Stated Complaint: FELL OFF SCAFFOLDING/HEAD INJ - Chief complaint Chief Complaint: Trauma Ch/Bk - History obtained from History obtained from: Patient - History of Present Illness Mechanism of injury: Fell - Additional information Additional information: This is a 65-year-old male who is on Eliquis for atrial fibrillation who fell off approximately 6 foot scaffolding while doing some work at his house. It was a accident, he did not have a syncopal event or any prodromal symptoms. He landed onto equipment in a banister. He presented primarily with complaint of right eyebrow laceration and left arm pain. He also had some lower back pain. He had no loss of consciousness, no change in mental status, no neck pain, no hip or pelvis pain, no lower extremity pain or numbness. Review of Systems Ten Systems: 10 systems reviewed and negative Skin: reports: Laceration (s) (Right eyebrow) Musculoskeletal: reports: Back pain, Extremity pain (Left wrist), Extremity swelling (Left wrist). denies: Neck pain PD PAST MEDICAL HISTORY - Past Medical History Past Medical History: Yes Cardiovascular: Hypertension, High cholesterol, Atrial fibrillation Respiratory: None Neuro: None Endocrine/Autoimmune: None GI: None : Other (Metastatic prostate cancer.) HEENT: None Psych: None Musculoskeletal: None Derm: None - Past Surgical History Past Surgical History: Yes Ortho: Knee replacement /MANAGER SIX SIGMA: Other Cardiovascular: Other (Ablation) HEENT: Tonsil/Adenoidectomy - Present Medications Home Medications: Ambulatory Orders Medication Instructions Recorded Confirmed Abiraterone Acetate [Zytiga] 1,000 mg PO DAILY 11/15/20 11/16/20 Apixaban [Eliquis] 5 mg PO BID 11/15/20 11/16/20 Atorvastatin [Lipitor] 80 mg PO DAILY 11/15/20 11/15/20 Citalopram [CeleXA] 40 mg PO DAILY 11/15/20 11/15/20 Losartan [Cozaar] 100 mg PO DAILY 11/15/20 11/15/20 Omeprazole [PriLOSEC] 20 mg PO DAILY 11/15/20 11/15/20 Potassium Chloride [K-Dur] 20 meq PO DAILY 11/15/20 11/16/20 Terbinafine [Lamisil] 250 mg PO DAILY 11/15/20 11/15/20 predniSONE [Deltasone] 5 mg PO DAILY 11/15/20 11/16/20 Furosemide [Lasix] 20 mg PO DAILY #30 tablet 11/17/20 Magnesium Oxide [Mag Ox] 400 mg PO DAILYWM tablet 11/17/20 bisoproloL fumarate [Bisoprolol 10 mg PO DAILY #30 tab 11/17/20 Fumarate] methocarbamoL [Robaxin] 500 mg PO Q6HR PRN #20 tablet 11/17/20 HYDROcod/ACET 5/325 Prepack 4 1 tablet PO Q6HR PRN #4 tablet 03/13/21 [NORCO 5/325 Prepack 4] HYDROcod/ACETAM 5/325 [[place] 5/325] 1 - 2 tablet PO Q6H PRN #14 tablet 03/13/21 - Allergies Allergies/Adverse Reactions: Allergies Allergy/AdvReac Type Severity Reaction Status Date / Time No Known Drug Allergies Allergy Verified 03/13/21 18:32 - Social History Does the pt smoke?: No Smoking Status: Former smoker Does the pt drink ETOH?: No Does the pt have substance abuse?: No - Immunizations Immunizations are current?: Yes - POLST Patient has POLST: No PD ED PE NORMAL - Vitals Vital signs reviewed: Yes - General General: Alert and oriented X 3, No acute distress, Well developed/nourished - HEENT HEENT: PERRL, EOMI, Ears normal, Moist mucous membranes, Pharynx benign, Other (There is a 3 cm laceration over the lateral aspect of the right eyebrow with surrounding contusion. Scalp is otherwise intact.) - Neck Neck: Supple, no meningeal sign, No bony TTP, No adenopathy, No JVD - Cardiac Cardiac: RRR, No murmur - Respiratory Respiratory: No respiratory distress, Clear bilaterally - Abdomen Abdomen: Normal bowel sounds, Soft, Non tender, Non distended - Back Back: Other (Lumbar spinal tenderness to palpation, no step-offs) - Derm Derm: Normal color, Warm and dry, No rash, Other (There is a laceration above the right eyebrow as described above. There is superficial abrasions of the entirety of the right upper arm, elbow and part of the forearm. There is a light abrasion of the left wrist.) - Extremities Extremities: Other (Chronic left hand deformity with tenderness about the left wrist. Moves fingers without difficulty. No other extremity injuries.) - Neuro Neuro: Alert and oriented X 3, No motor deficit, No sensory deficit, Normal speech Eye Opening: Spontaneous Motor: Obeys Commands Verbal: Oriented GCS Score: 15 - Psych Psych: Normal mood, Normal affect Results - Vitals Vitals: Vital Signs - 24 hr 03/13/21 03/13/21 18:27 19:07 Temperature 37.1 C Heart Rate 72 76 Respiratory 16 19 Rate Blood Pressure 124/73 O2 Saturation 96 95 Oxygen O2 Source Room air Procedures - Laceration (location) Face right Length in cm: 3 Wound type: Linear, Clean Anesthesia: Lidocaine 1% with epi Wound preparation: Irrigated copiously NS Skin layer closure: Nylon, Size #-0 - enter number (5), Sutures - enter # (6) Other: Patient tolerated well, Dressing applied PD MEDICAL DECISION MAKING - ED course Complexity details: reviewed results, re-evaluated patient, considered differential, d/w patient ED course: This is a 65-year-old male who fell off scaffolding while working at home. He was Brought into the ER as a modified trauma. He is on Eliquis so a stat head CT was obtained which was reassuring, he also had a lumbar x-ray and a left wrist x-ray due to pain. He has L1 compression fracture, no acute left wrist f ractures per x-ray though has history of numerous fractures of left wrist and has quite a bit of pain so he is placed in a left wrist splint as well. He had a right eyebrow laceration that was sutures as described above. He has remained awake alert with a normal neuro exam throughout his ER stay. The patient will be discharged home with pain control for his L1 compression fracture and is to follow-up with his primary care provider and Ortho next week, may benefit from physical therapy and/or a brace. He was advised to see his PCP in 5 to 7 days to get the sutures removed from the right eyebrow. I reviewed home wound care precautions and return instructions. Departure - Departure Disposition: 01 Home, Self Care Clinical Impression: Laceration of eyebrow, right Qualifiers: Encounter type: initial encounter Qualified Code(s): S01.111A - Laceration without foreign body of right eyelid and periocular area, initial encounter Head contusion Qualifiers: Encounter type: initial encounter Contusion of head detail: orbital tissues Laterality: right Qualified Code(s): S05.11XA - Contusion of eyeball and orbital tissues, right eye, initial encounter Closed compression fracture of L1 vertebra Qualifiers: Encounter type: initial encounter Qualified Code(s): S32.010A - Wedge compression fracture of first lumbar vertebra, initial encounter for closed fracture Left wrist sprain Qualifiers: Encounter type: initial encounter Qualified Code(s): S63.502A - Unspecified sprain of left wrist, initial encounter Condition: Good Instructions: ED Laceration All, ED Fx Comp Vertebral Follow-Up: Rodrigue Rios MD [Provider Admit Priv/Credential] - Prescriptions: HYDROcod/ACET 5/325 Prepack 4 [NORCO 5/325 Prepack 4] 1 tablet PO Q6HR PRN #4 tablet PRN Reason: Pain HYDROcod/ACETAM 5/325 [[place] 5/325] 1 - 2 tablet PO Q6H PRN #14 tablet PRN Reason: Pain Comments: You fell off scaffolding and sustained a right eyebrow laceration, head contusion, left wrist sprain, and L1 compression fracture. We repaired your right eyebrow laceration with 6 sutures and they can be removed in 5-7 days by your primary doctor or in any clinic. Please follow up with your primary doctor and ortho next week for follow up of L1 compression fracture. These are typically non surgical and require rest, pain control, and possibly physical therapy.
[2021-03-13] MEDS ORDERED: BACITRACIN ZINC OINT 1 PACKET TOP STA (19:23)
--- NOTE | 2021-03-13 19:26 | CT Report ---
PROCEDURE: HEAD WO INDICATIONS: fall eliquis head injury (6ft) TECHNIQUE: Noncontrast 4.5 mm thick angled axial sections acquired from the foramen magnum to the vertex. For r adiation dose reduction, the following was used: automated exposure control, adjustment of mA and/or kV according to patient size. COMPARISON: None. FINDINGS: Image quality: Excellent. CSF spaces: Basal cisterns are patent. No extra-axial fluid collections. Ventricles are normal in size and shape. Brain: No midline shift. No intracranial masses or hemorrhage. Medina-white matter interface is norm al. There is age-related volume loss. Intracranial carotid calcifications are noted. Skull and face: Calvarium and visualized facial bones are intact, without suspicious lesions. Sinuses: Visualized sinuses and mastoids are clear. IMPRESSION: No acute intracranial abnormality. Reviewed by: Win Cantrell on 03/13/2021 7:25 PM PDT Approved by: Win Cantrell on 03/13/2021 7:25 PM PDT Station ID: [id number]
--- NOTE | 2021-03-13 19:28 | XRAY Report ---
PROCEDURE: Wrist 4 View LT INDICATIONS: fall off of a scafold 6ft dorsal pain TECHNIQUE: 4 views of the wrist were acquired. COMPARISON: None FINDINGS: Bones: No fractures or dislocations. No suspicious bony lesions. There are degenerative changes of the first carpometacarpal joint and triscaphe joint. Angulation of the distal radius is consistent w ith a healed remote fracture. Scaphoid view: No scaphoid fracture Soft tissues: No suspicious soft tissue calcifications. IMPRESSION: 1. No acute traumatic abnormality. 2. Degenerative changes of the first carpometacarpal joint and triscaphe joint. Reviewed by: Win Cantrell on 03/13/2021 7:27 PM PDT Approved by: Win Cantrell on 03/13/2021 7:27 PM PDT Station ID: [id number]
--- NOTE | 2021-03-13 19:31 | CT Report ---
PROCEDURE: LUMBAR SPINE WO INDICATIONS: fall from scafold 6ft. L2-5 pain TECHNIQUE: Noncontrast 3 mm thick sections acquired from the T12 level to the sacrum. Sagittal and coronal refo rmats were constructed. For radiation dose reduction, the following was used: automated exposure co ntrol, adjustment of mA and/or kV according to patient size. COMPARISON: None. FINDINGS: Image quality: Excellent. Bones: There is a compression fracture of L1 with approximately 20% anterior height loss. A verticall y oriented fracture of the anterior column is seen. Pars defects of L5 bilaterally are present with g rade 1 anterolisthesis at L5-S1. T12-L1: Normal in appearance. L1-L2: Normal in appearance. L2-L3: Mild diffuse disc bulge with no significant foraminal or central canal stenosis. L3-L4: Mild diffuse disc bulge with mild bilateral foraminal stenosis and no significant central ca nal stenosis. L4-L5: Mild diffuse disc bulge and disc osteophytes causing moderate bilateral foraminal stenosis. L5-S1: Bilateral pars defects and grade 1 anterolisthesis with a diffuse disc bulge causing moderat e bilateral foraminal stenosis. The central canal is patent. Soft tissues: No retroperitoneal masses or hematomas. Visualized aorta is normal in caliber. IMPRESSION: 1. Acute compression fracture of L1 with 20% anterior height loss as above. 2. Multilevel degenerative disc disease as above. 3. Bilateral chronic pars defects of L5 with grade 1 anterolisthesis of L5-S1. Reviewed by: Win Cantrell on 03/13/2021 7:30 PM PDT Approved by: Win Cantrell on 03/13/2021 7:30 PM PDT Station ID: [id number]
[2021-03-13] MEDS ORDERED: ACETAMINOPHEN 325 MG TABLET PO STA (20:01)
[2021-03-13 20:44] VITALS: BP 126/79
[2021-03-13] MEDS ORDERED: HYDROcod/ACET 5/325 Prepack 4 PO STA (20:54)
== END 2021-03-13 21:06 | disposition home or self-care (01) ==
LOC: ED 18:17
DX: S01.111A Laceration without foreign body of right eyelid and periocular area, initial encounter (principal); S05.11XA Contusion of eyeball and orbital tissues, right eye, initial encounter; S32.010A Wedge compression fracture of first lumbar vertebra, initial encounter for closed fracture; S63.502A Unspecified sprain of left wrist, initial encounter; S60.812A Abrasion of left wrist, initial encounter; S50.811A Abrasion of right forearm, initial encounter; S50.311A Abrasion of right elbow, initial encounter; S40.811A Abrasion of right upper arm, initial encounter; W12.XXXA Fall on and from scaffolding, initial encounter; Y92.009 Unspecified place in unspecified non-institutional (private) residence as the place of occurrence of the external cause; I10 Essential (primary) hypertension; I48.91 Unspecified atrial fibrillation; Z79.01 Long term (current) use of anticoagulants; Z87.891 Personal history of nicotine dependence
CPT/HCPCS: 12013; 70450; 72131; 73110; 99283; 99284; A9270